=== PATIENT | female | born 1940 | race Caucasian/White ===

== ENCOUNTER 2020-09-07 13:02 | Outpatient (REF) | payer MEDICARE, SELFPAY ==
--- NOTE | ~2020-09-07 | MM_ITS ---
EXAMINATION: BONE DENSITOMETRY CLINICAL INDICATION: Osteoporosis. COMPARISON: Previous BD dated 11/30/2016 and baseline BD dated 09/10/2007. TECHNIQUE: Using a [employer] DXA System (software version: 13.1) manufactured by [employer], dual-energy x-ray absorptiometry was performed of the lumbar spine and left hip. The images are of good technical quality. Summary results are attached. FINDINGS: AP SPINE L1-L2 (excluding L3 and L4): The data of L1-L4 has been changed to exclude the L3 and L4 vertebral bodies because degenerative changes at these levels may cause overestimation of the lumbar spine density. Current: BMD 1.180 g/cm2, Z-score 1.7, T-score 0.1, normal, 6.1% increase from previous, 10 point% increase from baseline (<5% change is not significant). Prior: BMD 1.112 g/cm2. Baseline: BMD 1.067 g/cm2. LEFT FEMUR, NECK: Current: BMD 0.835 g/cm2, Z-score 0.5, T-score -1.5, osteopenia. Prior: BMD 0.766 g/cm2. Baseline: BMD 0.870 g/cm2. LEFT FEMUR, TOTAL: Current: BMD 0.871 g/cm2, Z-score 0.7, T-score -1.1, osteopenia, 10.1% increase from previous, 5.0% decrease from baseline (<5% change is not significant). Prior: BMD 0.791 g/cm2. Baseline: BMD 0.917 g/cm2. IDENTIFIED RISK FACTORS: Rheumatoid arthritis, osteoporosis, family history (parental hip fracture), anticonvulsants, menopause. HISTORY OF FRACTURE: None listed. MEDICATIONS: Calcium supplements or multivitamin, vitamin D, bisphosphonates. MM/XR DEXA axial skeleton IMPRESSION: 1. DIAGNOSIS: Osteopenia based on the lowest T-score value of -1.5 in the femoral neck applying World Health Organization criteria. 2. 10-YEAR FRACTURE RISK PREDICTION, FRAX: Major osteoporotic fracture (clinical spine, forearm, hip or shoulder) 26.6%. Hip fracture 15.1%. 3. Treatment Recommendations: NOF guidelines recommend consideration for treatment in postmenopausal women and men age 50 and older presenting with the following: -A hip or vertebral (clinical or morphometric) fracture. -T-score less than or equal to -2.5 at the femoral neck or spine after appropriate evaluation to exclude secondary causes. -Low bone mass at the hip or spine and a 10-year fracture probability by FRAX of greater than or equal to 3% for hip fracture or greater than or equal to 20% for major osteoporotic fracture based on the [place] adapted WHO algorithm. 4. Other Recommendations: All treatment decisions require clinical judgment and consideration of individual patient factors, including patient preferences, comorbidities, previous drug use, risk factors not captured in the FRAX model (e.g. frailty, falls, vitamin D deficiency, increased bone turnover, interval significant decline in bone density) and possible under or overestimation of fracture risk by FRAX. Additional medical evaluation for secondary cause of low bone mineral density may be appropriate. FUTURE SCAN RECOMMENDATION: People with diagnosed cases of osteoporosis or at high risk for fracture should have regular bone mineral density tests. For patients eligible for Medicare, routine testing is allowed once every 2 years. The testing frequency can be increased to one year for patients who have rapidly progressing disease, those who are receiving or discontinuing medical therapy to restore bone mass, or have additional risk factors.
== END 2020-09-07 13:03 | disposition home or self-care (01) ==
LOC: HO.MAMMO 13:02
PROVIDERS: Visit Provider Family Medicine
DX: M81.0 Age-related osteoporosis without current pathological fracture (principal); M06.9 Rheumatoid arthritis, unspecified; Z78.0 Asymptomatic menopausal state; Z79.899 Other long term (current) drug therapy
CPT/HCPCS: 77080